=== PATIENT | female | born 1955 | race Caucasian/White ===

== ENCOUNTER 2019-12-11 02:16 | Outpatient (CLI) | payer BC, SELFPAY ==
[2019-12-11 11:13] LABS: Hemoglobin A1C 5.7 % (3.8-5.6)
[2019-12-11 14:27] LABS: ALT 27 U/L (14-59); AST 22 U/L (15-37); Albumin 3.9 g/dL (3.4-5.0); Alkaline Phosphatase 79 U/L (46-116); Anion Gap 9.5 mmol/L (3-11); BUN 16 mg/dL (7-18); Bilirubin, Total 0.5 mg/dL (0.2-1.0); CO2 27.5 mmol/L (21.0-32.0); CREATININE 0.87 mg/dL (0.55-1.02); Calcium 9.1 mg/dL (8.5-10.1); Calculated LDL 138 mg/dL (<100); Chloride 106 mmol/L (98-107); Cholesterol 215 mg/dL (<200); Glucose 92 mg/dL (74-106); HDL Cholesterol 49 mg/dL (40-60); Potassium 4.8 mmol/L (3.5-5.1); Sodium 143 mmol/L (136-145); Total Protein 7.1 g/dL (6.4-8.2); Triglyceride 140 mg/dL (<150)
== END 2019-12-11 02:36 ==
DX: Z00.00 Encounter for general adult medical examination without abnormal findings (principal); E03.9 Hypothyroidism, unspecified; I10 Essential (primary) hypertension; R63.8 Other symptoms and signs concerning food and fluid intake; R73.01 Impaired fasting glucose; Z13.220 Encounter for screening for lipoid disorders
CPT/HCPCS: 36415; 80053; 80061; 83036

== ENCOUNTER 2019-12-31 01:40 | Outpatient (CLI) | payer BC, SELFPAY ==
--- NOTE | 2019-12-31 12:00 | DI.MAMMO_ITS ---
EXAM: MAMMO SCREENING CLINICAL HISTORY: screening, Z12.39 TECHNIQUE: Mammograms were interpreted according to the usual protocol including computer analysis w [employer] CAD system, tomosynthesis and C-view imaging. COMPARISON: 2011 through 2016 FINDINGS: The breasts are composed of mainly fatty density , Breast Density category A. No suspicious masses or suspicious microcalcifications are seen. No skin thickening or abnormal axillary lymph nodes are seen. There has been no significant change from prior exams. IMPRESSION: BIRADS Category 1, negative mammogram. Yearly screening mammography is recommended. Breast density category A.
== END 2019-12-31 02:00 ==
DX: Z12.31 Encounter for screening mammogram for malignant neoplasm of breast (principal)
CPT/HCPCS: 77063; 77067

== ENCOUNTER 2020-04-17 10:23 | Outpatient (REF) | payer BC, SELFPAY ==
--- NOTE | 2020-04-17 08:40 | PAPFT_PTH ---
PATIENT: Anna Marie Burdick LOC: [facility] U#:[id number] AGE/SX: 64/F ROOM: RE04/17/[address]: Naye Matthews APRN : 1955 BED: DIS: 04/17/2020 SPEC #: [id number] RECD: 04/17/20 12:49 STATUS: MELLO RELisandro #: [id number] LINNEA: 04/17/20 08:[address]: Naye Matthews DEPT: [facility] Cytology RECD BY: Abbey Mclaughlin Tissues: 1 - CX/ENDOCX FOR PAP SMEARS Procedures: PAP THIN PREP/UVM Screening HPV DNA PROBE Comments: [id number]
== END 2020-04-17 10:43 ==
LOC: LBN 10:23
DX: Z12.4 Encounter for screening for malignant neoplasm of cervix (principal); Z11.51 Encounter for screening for human papillomavirus (HPV)
CPT/HCPCS: 88142; 87624

== ENCOUNTER 2021-01-05 01:55 | Outpatient (CLI) | payer MEDICARE, BC, SELFPAY ==
--- NOTE | 2021-01-05 06:30 | DI.MAMMO_ITS ---
EXAM: MAMMO SCREENING CLINICAL HISTORY: screening,Z12.39 TECHNIQUE: Mammograms were interpreted according to the usual protocol including computer analysis w [email or web address] CAD system, tomosynthesis and C-view imaging. COMPARISON: 2011 through 2019 FINDINGS: The breasts are composed of mainly fatty density , Breast Density category A. No suspicious masses or suspicious microcalcifications are seen. No skin thickening or abnormal axillary lymph nodes are seen. There has been no significant change from prior exams. IMPRESSION: BI-RADS Category 1, Negative mammogram Yearly screening mammography is recommended. Breast Density - Category A, fatty density. A negative radiographic report should not delay biopsy if a dominant or clinically suspicious mass is present. Up to ten percent of cancers are not identified on mammography. A negative report may reinforce clinical impression. Adenosis and dense breasts may obscure an underlying neoplasm. False positive reports average 6 to 10%. Patient will receive a letter notifying them of these results.
== END 2021-01-05 02:15 ==
DX: Z12.31 Encounter for screening mammogram for malignant neoplasm of breast (principal)
CPT/HCPCS: 77063; 77067

== ENCOUNTER → 2022-01-28 10:57 | Outpatient (BNVA) | payer MEDICARE, BC, SELFPAY | PROVIDERS: Visit Provider Physical Therapy Assistant | DX: Z12.11 Encounter for screening for malignant neoplasm of colon (principal) ==

== ENCOUNTER 2022-02-04 12:31 | Outpatient (REF) | payer MEDICARE, BC, SELFPAY ==
--- NOTE | 2022-02-04 10:00 | PAPFT_PTH ---
PATIENT: Anna Marie Burdick LOC: [facility] U#:[id number] AGE/SX: 66/F ROOM: RE02/04/[address]: Tanvi Kelsey MD : 1955 BED: DIS: 02/04/2022 SPEC #: [id number] RECD: 02/04/22 17:39 STATUS: MELLO REQ #: [id number] LINNEA: 02/04/22 10:[address]: Tanvi Kelsey DEPT: [facility] Cytology RECD BY: Abbey Mclaughlin ENTERED: 02/04/22 17:39 SP TYPE: PAPFT OTHR DR: Naye Matthews APRN Tissues: 1 - CX/ENDOCX FOR PAP SMEARS Procedures: PAP THIN PREP/UVM Screening HPV DNA PROBE Comments: [id number]
== END 2022-02-04 12:32 | disposition home or self-care (01) ==
LOC: LBN 12:31
PROVIDERS: Visit Provider Obstetrics & Gynecology
DX: Z12.4 Encounter for screening for malignant neoplasm of cervix (principal); Z11.51 Encounter for screening for human papillomavirus (HPV); R87.810 Cervical high risk human papillomavirus (HPV) DNA test positive
CPT/HCPCS: 88142; 87624

== ENCOUNTER 2022-02-05 02:15 | Outpatient (CLI) | payer MEDICARE, BC, SELFPAY ==
[2022-02-05 12:10] LABS: Source Nasal/Nares
[2022-02-05 14:27] LABS: COVID-19 PCR Negative (Negative)
== END 2022-02-05 02:16 | disposition home or self-care (01) ==
LOC: LBO 02:16
PROVIDERS: Visit Provider Surgery
DX: Z20.822 Contact with and (suspected) exposure to COVID-19 (principal); Z01.818 Encounter for other preprocedural examination
CPT/HCPCS: 87635; U0005

== ENCOUNTER 2022-02-08 07:54 | Day surgery (SDC) | payer MEDICARE, BC, SELFPAY ==
--- NOTE | 2022-02-08 06:30 | W.COLOREPORT ---
Colonoscopy Report Date of procedure: 02/08/22 Pre-op diagnosis general: Colon Cancer Screening Post-op diagnosis procedure note: other (ascending polyp, rectal polyp vs internal hemohrrhoid, internal hemorrhoids) Procedure: Colonoscopy Surgeon: Rizwana Resendiz Anesthesia Type: General:No Airway Estimated blood loss (mL): 2 Pathology: other (ascending polyp, rectal polyp) Complications: None Disposition: same day Indications: The patient is here for Colonoscopy pre-op. Her last screening was in 2006 and was unremarkable. She has no family history of colon cancer. She has not had any bowel habit changes. -Discussed colonoscopy bowel prep as well as the procedure. Discussed possible complications of the procedure to include bleeding, pain, perforation, missed small lesion/polyp, sore throat, aspiration and adverse reaction to the medications. Questions were answered to patient?s satisfaction. No guarantees were implied or given.? Prep: Miralax/Dulcolax Procedure Start Time: 09:00 Procedure End Time: 09:27 Retraction Time: 9 minutes Findings: one small sessile polyp in the ascending polyp Rectal polyp vs internal hemorrhoid Grade 1 internal hemorrhoids Procedure Description: After informed consent was obtained the patient was taken to the procedure room and placed in a left decubitous position. Monitors were applied and a time out was done. The patients name, date of , procedure, allergies to medications and metal in their body was reviewed. The patient was then sedated. Once sedated and comfortable a rectal exam was done. External exam was normal. Internal exam revealed a normal sphincter tone and no palpable masses. The scope was then introduced and retro-flexed. Grade 1 internal hemorrhoids and a polyp (vs skin tag) were identified on retro-flexion. The scope was then advanced to the cecum without difficulty. The ileocecal vlave and appendiceal orifice were identified. The prep was good. The scope was then slowly retracted over 9 minutes back into the rectum. Polyps were removed with cold forceps in the ascending colon and with a hot snare in the rectum. There was no diverticulosis noted. The scope was removed and the patient was woken up and taken back to Same day surgery in stable condition. The patient tolerated the procedure well and there were no immediate complications. Follow up: The patient should follow up in 5 years unless they develop changes in bowel habits or other new gastrointestinal complaints.
--- NOTE | 2022-02-08 06:31 | W.PM.DSUDISC ---
Discharge Plan Disposition Patient Disposition: HOME Condition: Good Discharge Details Reason For Visit: Colonoscopy Attending Provider: Rizwana Resendiz Primary Care Provider: Naye Matthews Home Meds and New Rx's Prescriptions: Continued famotidine 20 mg tablet 20 mg PO QHS Qty: 60 0RF ibuprofen 600 mg tablet 600 mg PO QID Qty: 120 1RF Discontinued bisacodyl [Dulcolax (bisacodyl)] 5 mg tablet,delayed release (DR/EC) 5 mg PO ONCE Qty: 4 0RF Rx Instructions: Take according to provider's instructions for colonoscopy prep. polyethylene glycol 3350 17 gram/dose powder 17 g PO ONCE Qty: 238 0RF Rx Instructions: To be taken as directed by prescriber's office for colonoscopy prep. Discharge Instructions Instructions: Hemorrhoids (DC), Colorectal Polyps (DC) Additional Instructions: Findings: One small polyp Internal hemorrhoids Follow up: 5 years Please call if you develop: fevers >101.5 Nausea or Vomiting Abdominal pain that is not transient Rectal bleeding that is more then a tbsp A hard abdomen and inability to pass gas DAY SURGERY UNIT POST ENDOSCOPY INSTRUCTIONS Instructions for everyone who is given Anesthesia: For your safety, please do the following for the next 24 Hours: a. Do not drive or operate dangerous equipment b. Do not drink alcohol beverages or use any recreational drugs for the first 24 hours or while taking pain medications. The medications in your body may have a reaction that can be dangerous. c. Do not make any important decisions or sign any important papers 1. Generally there are no restrictions on your activity after a day or so has gone by, but you may feel a bit fatigued for a few days. 2. After you arrive home you may have a light meal and return to a normal diet as you can tolerate it without feeling sick to your stomach. 3. After surgery, you may feel pain or discomfort. This should be only transient, but if it persists please contact your doctor. 4. If there are any questions regarding the findings of your procedure, please feel free to contact your doctor. 6. If you are unable to contact your doctor with a problem, contact the hospital at [phone]. 7. Continue all your regular medications unless directed otherwise. I understand the above instructions and have no questions. Signature of Patient or Responsible Adult Escort Date/Time Name of Responsible Adult Escort Signature of Nurse Date/Time Activity:: Activity as Tolerated Diet:: As Tolerated Discharge Orders Discharge Orders: Discharge Order (Routine); Ordered 02/08/22 Ordered By: Rizwana Resendiz
[2022-02-08 08:13] VITALS: BP 137/90; PULSE 86; RESP 18; TEMP 36.6; O2SAT 97
[2022-02-08] MEDS: Lactated Ringers 1,000 ML 80 ML IV (08:29)
--- NOTE | 2022-02-08 08:48 | W.ANESPRE ---
General Info Date of Service Date Performed: 02/08/22 Height: 5 ft 1 in Weight: 97.3 kg Body Mass Index (BMI): 40.5 Surgical Procedure: Operation Date: 02/08/22 09:05 Proposed Procedure Side Surgeon p Colonoscopy Rizwana Resendiz MD Actual Procedure Side Surgeon p Colonoscopy Rizwana Resendiz MD Meds Allergies and Home Medications Allergies Allergy/AdvReac Type Severity Reaction Status Date / Time Penicillins Allergy Intermediate Hives Verified 02/08/22 08:03 Home Medication Medication Instructions Recorded ibuprofen 600 mg tablet 600 mg PO QID #120 tab 09/03/20 bisacodyl 5 mg tablet,delayed 5 mg PO ONCE #4 tab 01/28/22 release (Dulcolax (bisacodyl)) famotidine 20 mg tablet 20 mg PO QHS #60 tab 01/28/22 polyethylene glycol 3350 17 17 g PO ONCE #238 g 01/28/22 gram/dose oral powder Current Visit Medications: Current Medications Generic Name Dose Route Start Last Admin Trade Name Freq PRN Reason Stop Dose Admin Hyoscyamine Sulfate 0.125 mg 02/08/22 06:31 Hyoscyamine 0.125 Mg Sl/Oral/Chew SL DIRECTED PRN Ringer's Solution 1,000 mls @ 80 mls/hr 02/08/22 06:00 02/08/22 08:29 IV 03/07/22 23:59 80 mls/hr INFUSION ISADORA Administration IV Miscellaneous Supplies 1 each 02/08/22 06:00 Iv Access IV 03/07/22 23:59 DIRECTED ISADORA Ondansetron HCl 4 mg 02/08/22 06:31 Ondansetron 4 Mg/2 Ml Vial IVP Q4H PRN PRN Nausea / Vomiting Sodium Chloride 0 ml 02/08/22 06:00 Normal Saline Flush 10 Ml Syr IV 03/07/22 23:59 PRN PRN Sodium Chloride 0 ml 02/08/22 06:00 Normal Saline 10 Ml Vial IJ 03/07/22 23:59 DIRECTED PRN Sterile Water 0 ml 02/08/22 06:00 Water,Injection,Sterile 10 Ml Vial IJ 03/07/22 23:59 DIRECTED PRN PFSH Active Problems Active Problems: Problem Status Onset Code Polyp of colon 09/29/06 K63.5 Medical History Medical History Bilateral hand pain Cervical cancer screening 12/2010: PAP/HPV = ASCUS/+HPV ([facility]) 02/11/2011: PAP/HPV= NEG/=HPV (Dr. Chawla) 01/31/2012: PAP/HPV= ASCUS/+HPV ([facility]) 03/02/2012: PAP/HPV= ASCUS/-HPV (Dr. Chawla) 08/2012: Previously diagnosed cervical dysplasia. COLPO (done for ASCUS PAP) ? ?normal COLPO but with ECC showing LSIL. (Dr. Chawla) 04/12/2013: NORMAL (shift in jared suggestive of BV) (Dr. Chawla) 10/16/2013: PAP/HPV = NEG/NEG ( Dr. Chawla) 04/16/2014: PAP/HPV = NEG/NEG (Dr. Chawla) 08/23/17: PAP/HPV = ASCUS/NEG ([facility]) 02/09/18: PAP/HPV = ASCUS/NEG ([facility]) 04/18/20: PAP/HPV = NEG/+ HPV (HPV Genotypes 16 & 18/45 are NEG) ([facility]) - Refer to [facility] -Colposcopy at [facility]. Biopsy and ECC negative. 02/04/22: repeat pap @[facility]: Chronic osteoarthritis GERD (gastroesophageal reflux disease) Increased body mass index (BMI) Low back pain S1 disc w/ nerve compression Numbness and tingling Screening for colon cancer Surgical History Surgical History Arthroplasty of knee left knee w/ cartilege removal;repair torn ACL 2006 Bilateral salpingectomy with oophorectomy pT. DENIES THIS section Cholecystectomy Tobacco Smoking/Tobacco Use Status: Never Passive smoking exposure: No Second hand exposure: No Alcohol Alcohol Intake: current Alcohol intake frequency: holidays/special occasions only Alcohol type: beer Substance Use Substance use: Never Substance use type: does not use Counseling provided: none Prental History History Para Hx # Term Pregnancies Multiple births Hx # Pregnancies Ectopic pregnancies AB induced Hx Number of Living Children 2 AB spontaneous Vital Signs and Lab Results Vital Signs Most Recent Vital Signs in EMR: Most Recent Vital Signs Temp Pulse Resp BP Pulse Ox 36.6 C 86 18 137/90 97 02/08/22 08:13 02/08/22 08:13 02/08/22 08:13 02/08/22 08:13 02/08/22 08:13 Lab Results Blood Type / Crossmatch: No Data to Display Complete Blood Count: No Data to Display Complete Metabolic Panel: No Data to Display Liver Function Panel: No Data to Display Coagulation Panel: No Data to Display Cardiac Panel: No Data to Display Arterial Blood Gas: No Data to Display Venous Blood Gas: No Data to Display Pancreas Panel: No Data to Display Thyroid Panel: No Data to Display Infectious Disease: Coronavirus (COVID-19)(PCR) Negative (Negative) 02/05/22 08:29 02/05/22 Coronavirus 2019 Source Nasal/Nares 02/05/22 08:29 02/05/22 Blood Cultures: No Data to Display Toxicology Panel: No Data to Display Anesthesia Assessment and Plan Anesthesia History Personal History: No History of Anesthesia Complications Family History: No Family History of Anesthesia Complications Exercise Tolerance Exercise Tolerance: Metabolic Equivalents>4 Cardiac & Pulmonary Exam Cardiac Exam: Normal S1/S2 Heart Sounds Pulmonary Exam: Clear Bilateral Breath Sounds Implantable Cardiac Device Does patient have a Pacemaker or an ICD?: No Airway Exam Known Difficult Airway: No Mallampati Class: 2 Mouth Opening: Normal (> 3cm) Thyromental Distance: Less than 3 cm Neck Range of Motion: Full ROM Neck Circumference: Normal Teeth Condition: Normal Dentition ASA Classification ASA Score: ASA 3 Emergency Case?: No NPO Status NPO Status: NPO Clears >2 hours, Solids >8 hours Anesthesia Plan Resuscitation Status: Full Code Anesthesia Technique: General Anesthesia Airway Planned: Natural Airway Pain Management: Surgeon and patient request nerve block Monitors Used: Standard Monitors Preoperative Comments:: 66 yo female for repeat colo, last was unremarkable. Sig PMHx: GERD, denies major issues.
[2022-02-08 08:49] VITALS: BMI 40.5
--- NOTE | 2022-02-08 09:11 | BOWEL_PTH ---
PATIENT: Anna Marie Burdick LOC: [facility] U#:[id number] AGE/SX: 66/F ROOM: RE02/08/[address]: Rizwana Resendiz MD : 1955 BED: DIS: 02/08/2022 SPEC #: [id number] RECD: 02/08/22 11:51 STATUS: MELLO REQ #: [id number] LINNEA: 02/08/22 09:[address]: Rizwana Resendiz DEPT: Surgical Specimen RECD BY: Abbey Mclaughlin ENTERED: 02/08/22 11:51 SP TYPE: Bowel OTHR DR: Naye Matthews APRN Tissues: 1 - BIOPSY BOWEL 2 - BIOPSY BOWEL Procedures: GROSS AND MICRO LEVEL 4 Comments: [id number]
[2022-02-08 09:40] VITALS: BP 140/93; PULSE 74; RESP 16; TEMP 36.4; O2SAT 98
[2022-02-08 10:12] VITALS: BP 139/69; PULSE 62; RESP 16; TEMP 36.2; O2SAT 99
--- NOTE | 2022-02-08 14:23 | W.ANESPOSTOP ---
Postoperative Evaluation Date, Time and Location Date Performed: 02/08/22 Time Performed: 14:23 Patient Location: Day Surgery Unit Vital Signs Most Recent Imported Vital Signs: Most Recent Vital Signs Temp Pulse Resp BP Pulse Ox 36.2 C L 62 16 139/69 99 02/08/22 10:12 02/08/22 10:12 02/08/22 10:12 02/08/22 10:12 02/08/22 10:12 Pain Score Most Recent Pain Score: Most Recent Pain Score Pain Level 0 02/08/22 10:12 Assessment Mental Status: Awake (Alert & Oriented to Patient Baseline) Airway and Respiratory Function: Patent airway with normal (patient baseline) respiratory exam Cardiovascular Function: Hemodynamically Stable Hydration Status: Adequately Hydrated Nausea & Vomiting: No Nausea or Vomiting Pain: Pt. Denies Any Pain Peripheral Nerve Block: Patient did not receive a nerve block
== END 2022-02-08 10:41 | disposition home or self-care (01) ==
LOC: SUR 07:54
PROVIDERS: Visit Provider Surgery
PROC: 0DJD8ZZ Inspection of Lower Intestinal Tract, Via Natural or Artificial Opening Endoscopic (ICD-10-PCS; CPT 45378; principal; 2022-02-08 09:00)
DX: Z12.11 Encounter for screening for malignant neoplasm of colon (principal); K62.1 Rectal polyp; K63.5 Polyp of colon; K21.9 Gastro-esophageal reflux disease without esophagitis; M54.50 Low back pain, unspecified; K64.0 First degree hemorrhoids; K63.89 Other specified diseases of intestine
CPT/HCPCS: 45380; 45385; 88305; J2001

== ENCOUNTER 2022-02-09 03:08 | Outpatient (CLI) | payer MEDICARE, BC, SELFPAY ==
[2022-02-09 10:45] LABS: ALT 28 U/L (14-59); AST 20 U/L (15-37); Albumin 3.9 g/dL (3.4-5.0); Alkaline Phosphatase 100 U/L (46-116); Anion Gap 8.2 mmol/L (3-11); BUN 18 mg/dL (7-18); Bilirubin, Total 0.5 mg/dL (0.2-1.0); CO2 25.8 mmol/L (21.0-32.0); CREATININE 1.3 mg/dL (0.55-1.02); Chloride 106 mmol/L (98-107); Estimated GFR 40.98 (mL/min/1.73m2); Glucose 98 mg/dL (74-106); Potassium 4.3 mmol/L (3.5-5.1); Sodium 140 mmol/L (136-145); Total Protein 7.2 g/dL (6.4-8.2)
== END 2022-02-09 03:09 | disposition home or self-care (01) ==
LOC: LBO 03:09
DX: Z00.00 Encounter for general adult medical examination without abnormal findings (principal); K21.9 Gastro-esophageal reflux disease without esophagitis; M54.59 Other low back pain
CPT/HCPCS: 36415; 80053

== ENCOUNTER 2022-04-29 02:35 | Outpatient (CLI) | payer MEDICARE, BC, SELFPAY ==
[2022-04-29 13:58] LABS: Anion Gap 7.4 mmol/L (3-11); BUN 25 mg/dL (7-18); CO2 26.6 mmol/L (21.0-32.0); CREATININE 1.1 mg/dL (0.55-1.02); Calcium 9.4 mg/dL (8.5-10.1); Chloride 105 mmol/L (98-107); Estimated GFR 49.69 (mL/min/1.73m2); Glucose 121 mg/dL (74-106); Potassium 4.3 mmol/L (3.5-5.1); Sodium 139 mmol/L (136-145)
[2022-04-29 15:21] LABS: Calculated LDL 141 mg/dL (<100); Cholesterol 239 mg/dL (<200); HDL Cholesterol 52 mg/dL (40-60); Triglyceride 232 mg/dL (<150)
== END 2022-04-29 02:36 | disposition home or self-care (01) ==
LOC: LOS 02:35
DX: E78.5 Hyperlipidemia, unspecified (principal); N28.9 Disorder of kidney and ureter, unspecified
CPT/HCPCS: 36415; 80048; 80061

== ENCOUNTER → 2022-07-06 01:02 | Outpatient (CLI) | payer MEDICARE, BC, SELFPAY ==
--- NOTE | 2022-07-06 13:18 | DI.MAMMO_ITS ---
Exam(s) MAMMO SCREENING EXAM: MAMMO SCREENING CLINICAL HISTORY: screening,z12.39 TECHNIQUE: Bilateral full field digital CC and MLO mammographic images were obtained with 3D tomosyn thesis and utilizing computer aided detection (CAD). COMPARISON: Available for comparison. FINDINGS: Masses/Architectural Distortion: None seen. Microcalcifications: No suspicious pleomorphic-type are seen. Skin Thickening/Nipple Retraction: None. IMPRESSION: 1. No significant interval change with no specific features of malignancy noted. 2. Unless there is more urgent need, screening mammography is recommended, as per [place] [employer] guidelines. BI-RADS Category 1 - Negative Breast Density - Category B - Scattered areas of fibroglandular density Breast density category C or D implies that the patient has dense breast tissue. Dense breast tissue is very common and is not abnormal but dense breast tissue can make it harder to find cancer on a ma mmogram. Also, dense breast tissue may increase their breast cancer risk. This information about the result of the mammogram report was provided to the patient to raise their awareness. Use this report when you speak with the patient about their risks for breast cancer, which includes their family hist ory. At that time, you may recommend for more screening tests (Ultrasound or MRI) as they might be us eful based on their risk. A negative radiographic report should not delay biopsy if a dominant or clinically suspicious mass is present. Up to ten percent of cancers are not identified on mammography. A negative report may reinforce clinical impression. Adenosis and dense breasts may obscure an underlying neoplasm. False positive reports average 6 to 10%. Patient will receive a letter notifying them of these results.
== END ==
DX: Z12.31 Encounter for screening mammogram for malignant neoplasm of breast (principal)
CPT/HCPCS: 77063; 77067

== ENCOUNTER 2023-02-23 01:43 | Outpatient (CLI) | payer MEDICARE, BC, SELFPAY ==
--- NOTE | 2023-02-23 07:43 | DI.RAD_ITS ---
Exam(s) XR KNEE LT 3V AP,LAT,OZ EXAM: XR KNEE LT 3V AP,LAT,OZ CLINICAL HISTORY: increased lt knee pain,m25.562. TECHNIQUE: 2D digital imaging was performed. Three views. COMPARISON: No exams were available for comparison FINDINGS: BONES: No acute fracture is present. No bony destructive lesion is seen. JOINTS: There is severe narrowing of the medial femoral tibial joint space with a [id number] appear ance and prominent periarticular spurring. Lateral femoral tibial joint is maintained. There is als o mild spurring at the articular aspect of the patella. No joint effusion is seen. SOFT TISSUE: Normal. IMPRESSION: Severe degenerative changes of the medial femoral tibial joint. DATA REPOSITORY: RADIATION DOSE DELIVERED:
--- NOTE | 2023-02-23 07:43 | DI.RAD_ITS ---
Exam(s) XR LUMBAR SPINE COMPLETE EXAM: XR LUMBAR SPINE COMPLETE CLINICAL HISTORY: increased low back pain, m54.5. TECHNIQUE: 2D digital imaging was performed. Five views. COMPARISON: No exams were available for comparison FINDINGS: BONES: No fracture or destructive lesion. Vertebral body heights are maintained. There are minimal e ndplate osteophytes. There are facet degenerative changes at L4-5 and L5-S1. No spondylolysis. S I joints are unremarkable. DISKS: Mild narrowing of the L4-5 and L5-S1 disc spaces. Remaining disc spaces are maintained. ALIGNMENT: There is slight spondylolisthesis at L4-5 secondary to facet degenerative changes. SOFT TISSUE: Multiple surgical clips both upper quadrants. IMPRESSION: Mild degenerative changes at L4-5 and L5-S1. DATA REPOSITORY: RADIATION DOSE DELIVERED:
== END 2023-02-23 02:03 ==
LOC: DI 01:44
PROVIDERS: PCP Nurse Practitioner Family; Visit Provider Nurse Practitioner Family
DX: M25.562 Pain in left knee
CPT/HCPCS: 73562; 72110

== ENCOUNTER 2023-02-23 02:58 | Outpatient (CLI) | payer MEDICARE, BC, SELFPAY ==
[2023-02-23 08:03] LABS: Anion Gap 6.8 mmol/L (3-11); BUN 20 mg/dL (7-18); CO2 29.2 mmol/L (21.0-32.0); CREATININE 1.3 mg/dL (0.55-1.02); Calcium 9.4 mg/dL (8.5-10.1); Chloride 105 mmol/L (98-107); Estimated GFR 45.07 (mL/min/1.73m2); Glucose 112 mg/dL (74-106); Potassium 4.3 mmol/L (3.5-5.1); Sodium 141 mmol/L (136-145)
[2023-02-23 08:25] LABS: Hemoglobin A1C 5.8 % (<5.7)
== END 2023-02-23 02:59 | disposition home or self-care (01) ==
LOC: LBO 02:59
PROVIDERS: PCP Nurse Practitioner Family; Visit Provider Nurse Practitioner Family
DX: R73.9 Hyperglycemia, unspecified (principal); R20.0 Anesthesia of skin; R20.2 Paresthesia of skin; E78.5 Hyperlipidemia, unspecified
CPT/HCPCS: 36415; 73562; 80048; 72110; 83036

== ENCOUNTER 2023-05-19 14:24 | Outpatient (REF) | payer MEDICARE, BC, SELFPAY ==
--- NOTE | 2023-05-19 11:40 | PAPFT_PTH ---
PATIENT: Anna Marie Burdick LOC: [facility] U#:[id number] AGE/SX: 67/F ROOM: RE05/19/[address]: Tanvi Kelsey MD : 1955 BED: DIS: 05/19/2023 SPEC #: [id number] RECD: 05/19/23 17:56 STATUS: MELLO REQ #: [id number] LINNEA: 05/19/23 11:[address]: Tanvi Kelsey DEPT: [facility] Cytology RECD BY: Abbey Mclaughlin ENTERED: 05/19/23 17:57 SP TYPE: PAPFT OTHR DR: Eulogio Castro DNP Tissues: 1 - CX/ENDOCX FOR PAP SMEARS Procedures: PAP THIN PREP/[facility] Screening HPV DNA PROBE Comments: [id number]
== END 2023-05-19 14:25 | disposition home or self-care (01) ==
LOC: LBN 14:24
PROVIDERS: PCP Nurse Practitioner Family; Visit Provider Obstetrics & Gynecology
DX: Z11.51 Encounter for screening for human papillomavirus (HPV) (principal)
CPT/HCPCS: 88142; 87624

== ENCOUNTER → 2023-05-23 08:02 | Outpatient (BNVA) | payer MEDICARE, BC, SELFPAY | PROVIDERS: PCP Nurse Practitioner Family; Referring Provider Nurse Practitioner Family; Visit Provider Student in an Organized Health Care Education/Training Program | DX: G56.01 Carpal tunnel syndrome, right upper limb (principal); G56.02 Carpal tunnel syndrome, left upper limb; M17.12 Unilateral primary osteoarthritis, left knee; Z98.890 Other specified postprocedural states | CPT/HCPCS: 99214 ==

== ENCOUNTER → 2023-06-08 01:52 | Outpatient (CLI) | payer MEDICARE, BC, SELFPAY ==
--- NOTE | 2023-06-08 07:30 | DI.MRI_ITS ---
Exam(s) MR LUMBAR SPINE WO EXAM: MR LUMBAR SPINE WO CLINICAL HISTORY: no improvement with PT,LOW BACK PAIN, M54.5. TECHNIQUE: Multiplanar multisequence MRI of the Lumbar spine was performed. COMPARISON: CR XR LUMBAR SPINE COMPLETE from 02/23/2023 FINDINGS: Bones: The last intervertebral disc space is designated the L5/S1 level for the numbering purpose of this examination. The vertebral body heights are well maintained. Alignment is satisfactory. The ma rrow signal characteristics are unremarkable. Cord: The conus tip ends at the T12 level. It is of normal size and signal intensity. T12-L1: No disc herniations or bulges are present. No central spinal canal or neural foraminal stenos is. L1-2: No disc herniations or bulges are present. No central spinal canal or neural foraminal stenosis . L2-3: No disc herniations or bulges are present. No central spinal canal or neural foraminal stenosis . L3-4: Small left foramina disc protrusion causing moderate neural foraminal narrowing. No central ca nal stenosis. Mild facet joint degenerative changes. L4-5: Minimal disc bulging. Facet degenerative changes. Mild ligamentous hypertrophy. Mild central canal stenosis. No significant neural foraminal narrowing. L5-S1: No disc herniations or bulges are present. Facet degenerative changes. No significant central canal stenosis or neural foraminal narrowing. The visualized SI joints and sacrum are well maintained. Nerve root sheath cysts are noted at S1 and S2. Soft tissues: The paraspinal soft tissues are unremarkable. IMPRESSION: Left foraminal disc protrusion at L3-4 causing moderate left neural foraminal narrowing. Mild central canal stenosis secondary to combination of facet degenerative changes and ligamentous hy pertrophy at L4-5. DATA REPOSITORY:
== END ==
PROVIDERS: PCP Nurse Practitioner Family; Visit Provider Nurse Practitioner Family
DX: M99.63 Osseous and subluxation stenosis of intervertebral foramina of lumbar region
CPT/HCPCS: 72148

== ENCOUNTER 2023-06-22 08:42 | Day surgery (SDC) | payer MEDICARE, BC, SELFPAY ==
--- NOTE | 2023-06-22 07:31 | W.PM.DSUDISC ---
Date of service: 06/22/23 Time of Service: 07:31 Discharge Plan Disposition Patient Disposition: Home Condition: Good Discharge Details Reason For Visit: L ECTR Attending Provider: Nabil Caro Primary Care Provider: Eulogio Eller Home Meds and New Rx's Prescriptions: New hydrocodone-acetaminophen 5-325 mg tablet 1 tab PO Q6H PRN (Reason: pain) Qty: 4 0RF acetaminophen 500 mg tablet 1,000 mg PO TID Qty: 90 0RF ibuprofen 600 mg tablet 600 mg PO TID PRN (Reason: pain) Qty: 90 0RF Continued famotidine 20 mg tablet 20 mg PO PRN Discontinued ibuprofen 600 mg tablet 800 mg PO PRN Discharge Instructions Stand Alone Forms: Vania Sherman Tunnel Release Referrals: Nabil Caro MD [ [facility] STAFF PHYSICIAN] - Activity:: Activity as Tolerated Remove Dressings/Wound Care:: 48 hours Shower/Bathe:: 48 hours Diet:: As Tolerated Discharge Orders Discharge Orders: Discharge Order (Routine); Ordered 06/22/23 Ordered By: Denton Juarez DS: Diagnosis Discharge Diagnosis (1) Left carpal tunnel syndrome: Status: Acute
[2023-06-22 09:16] VITALS: BP 143/91; PULSE 70; RESP 18; TEMP 36.6; O2SAT 98
--- NOTE | 2023-06-22 09:30 | W.ANESPRE ---
General Info Date of Service Date Performed: 06/22/23 Height: 5 ft 1 in Weight: 105.9 kg Body Mass Index (BMI): 44.1 Surgical Procedure: Operation Date: 06/22/23 09:55 Proposed Procedure Side Surgeon p Wrist ECTR Left Nabil Caro MD Actual Procedure Side Surgeon p Wrist ECTR Left Nabil Caro MD Pre-Op Diagnosis Post-Op Diagnosis L ECTR Meds Allergies and Home Medications Allergies Allergy/AdvReac Type Severity Reaction Status Date / Time Penicillins Allergy Intermediate Hives Verified 06/22/23 09:20 Home Medication Medication Instructions Recorded famotidine 20 mg tablet 20 mg PO PRN Heart Burn 05/24/23 acetaminophen 500 mg tablet 1,000 mg PO TID #90 tabs 06/22/23 hydrocodone 5 mg-acetaminophen 325 1 tab PO Q6H PRN pain #4 tabs 06/22/23 mg tablet ibuprofen 600 mg tablet 600 mg PO TID PRN pain #90 tabs 06/22/23 ibuprofen 800 mg tablet 800 mg 06/22/23 naproxen sodium 220 mg tablet 660 mg PO BID PRN 06/22/23 (Aleve) Current Visit Medications: Current Medications Generic Name Dose Route Start Last Admin Trade Name Freq PRN Reason Stop Dose Admin Acetaminophen 650 mg 06/22/23 07:29 Acetaminophen 325 Mg Tab PO 07/22/23 07:28 Q4H PRN PRN Hydrocodone Bitart/Acetaminophen 0 tab 06/22/23 07:29 Hydrocodone 5/Acetaminophen 325 Tab PO 07/22/23 07:28 Q3H PRN PRN Pain Ringer's Solution 1,000 mls @ 80 mls/hr 06/22/23 06:00 IV 06/22/23 23:59 INFUSION ISADORA Cefazolin Sodium/Dextrose 2 gm in 50 mls @ 100 mls/hr 06/22/23 06:00 Ancef Duplex IVPB 06/22/23 23:59 PREOP ISADORA IV Miscellaneous Supplies 1 each 06/22/23 06:00 Iv Access IV 06/22/23 23:59 DIRECTED ISADORA Sodium Chloride 0 ml 06/22/23 06:00 Normal Saline Flush 10 Ml Syr IV 06/22/23 23:59 PRN PRN Sodium Chloride 0 ml 06/22/23 06:00 Normal Saline 10 Ml Vial IJ 06/22/23 23:59 DIRECTED PRN Sterile Water 0 ml 06/22/23 06:00 Water,Injection,Sterile 10 Ml Vial IJ 06/22/23 23:59 DIRECTED PRN PFSH Active Problems Active Problems: Problem Status Onset Code Low back pain M54.5 Bilateral hand pain M79.641, M79.642 Numbness and tingling R20.0, R20.2 Low kidney function N28.9 Hyperlipidemia E78.5 Morbid obesity with BMI of 40.0-44.9, adult E66.01, Z68.41 Immunization counseling Z71.85 Left knee pain M25.562 Hyperglycemia R73.9 Left knee DJD M17.12 Left carpal tunnel syndrome G56.02 Right carpal tunnel syndrome G56.01 Medical History Medical History Chronic osteoarthritis COVID (~12/13/22) GERD (gastroesophageal reflux disease) History of cervical dysplasia 05/19/23: 02/04/22: normal/HPV+ pap --> [facility]: neg : Colposcopy at [facility]. Biopsy and ECC negative 04/18/20: Normal/+HPV (HPV Genotypes 16 & 18/45 are NEG)? ([facility]) 02/09/18: ASCUS/NEG HPV ([facility]) 08/23/17: ASCUS/NEG HPV([facility]) 04/16/2014: NEG/NEG (Dr. Chawla) Polyp of colon (09/29/06) fibroepithelial polyp Screening for colon cancer Surgical History Surgical History Bilateral salpingectomy with oophorectomy pT. DENIES THIS section Cholecystectomy (~01/2022) History of colonoscopy (~01/2022) History of left knee surgery left knee w/ cartilage removal; repair torn ACL 2006 Hx of bilateral salpingectomy Tobacco Smoking/Tobacco Use Status: Never Passive smoking exposure: Yes Second hand exposure: Yes Alcohol Alcohol Intake: current Alcohol intake frequency: a few times a month Alcohol type: beer Substance Use Substance use: Never Substance use type: does not use Counseling provided: none Prental History History 4 Para 2 Hx # Term Pregnancies Multiple births Hx # Pregnancies Ectopic pregnancies AB induced 2 Hx Number of Living Children 2 AB spontaneous Past Pregnancies Del. Date GA/Weeks # Preg Succ Route Wgt Sex Labor Lgth Anesthesia Location Prov Complic 09/04/79 No Female 12/11/80 No Female Delivery Date: 09/04/79 Last Updated by: Cassie Butler Iveth Delivery Date: 12/11/80 Last Updated by: Cassie Butler [place] Vital Signs and Lab Results Vital Signs Most Recent Vital Signs in EMR: Most Recent Vital Signs Temp Pulse Resp BP Pulse Ox 36.6 C 70 18 143/91 H 98 06/22/23 09:16 06/22/23 09:16 06/22/23 09:16 06/22/23 09:16 06/22/23 09:16 Lab Results Blood Type / Crossmatch: No Data to Display Complete Blood Count: No Data to Display Complete Metabolic Panel: No Data to Display Liver Function Panel: No Data to Display Coagulation Panel: No Data to Display Cardiac Panel: No Data to Display Arterial Blood Gas: No Data to Display Venous Blood Gas: No Data to Display Pancreas Panel: No Data to Display Thyroid Panel: No Data to Display Infectious Disease: No Data to Display Blood Cultures: No Data to Display Toxicology Panel: No Data to Display Anesthesia Assessment and Plan Anesthesia History Personal History: No History of Anesthesia Complications Family History: No Family History of Anesthesia Complications Exercise Tolerance Exercise Tolerance: Metabolic Equivalents>4 Pertinent Negatives Pertinent Negatives: No Symptoms of GERD, No Major Cardiovascular Symptoms or Complaints and No Major Pulmonary Symptoms or Complaints Cardiac & Pulmonary Exam Cardiac Exam: Normal S1/S2 Heart Sounds Pulmonary Exam: Clear Bilateral Breath Sounds Implantable Cardiac Device Does patient have a Pacemaker or an ICD?: No Airway Exam Known Difficult Airway: No Mallampati Class: 2 Mouth Opening: Normal (> 3cm) Thyromental Distance: Less than 3 cm Neck Range of Motion: Full ROM Neck Circumference: Normal Teeth Condition: Normal Dentition ASA Classification ASA Score: ASA 3 Emergency Case?: No NPO Status NPO Status: NPO Clears >2 hours, Solids >8 hours Anesthesia Plan Resuscitation Status: Full Code Anesthesia Technique: General Anesthesia Airway Planned: Natural Airway Monitors Used: Standard Monitors
[2023-06-22 09:34] VITALS: BMI 44.1
[2023-06-22] MEDS: Lactated Ringers 1,000 ML 80 ML IV (09:35)
[2023-06-22] MEDS: ceFAZolin 2 GM/50 ML BAG IVPB (10:10)
[2023-06-22] MEDS: Lidocaine 1% Pres-Free W/EPI 1/200,000 30 ML VIAL (10:31)
[2023-06-22 10:44] VITALS: BP 113/79; PULSE 68; RESP 16; TEMP 36.4; O2SAT 97
--- NOTE | 2023-06-22 11:02 | W.ANESPOSTOP ---
Postoperative Evaluation Date, Time and Location Date Performed: 06/22/23 Time Performed: 11:02 Patient Location: Day Surgery Unit Vital Signs Most Recent Imported Vital Signs: Most Recent Vital Signs Temp Pulse Resp BP Pulse Ox 36.4 C L 68 16 113/79 97 06/22/23 10:44 06/22/23 10:44 06/22/23 10:44 06/22/23 10:44 06/22/23 10:44 Pain Score Most Recent Pain Score: Most Recent Pain Score Pain Level 0 06/22/23 10:50 Assessment Mental Status: Awake (Alert & Oriented to Patient Baseline) Airway and Respiratory Function: Patent airway with normal (patient baseline) respiratory exam Cardiovascular Function: Hemodynamically Stable Hydration Status: Adequately Hydrated Nausea & Vomiting: No Nausea or Vomiting Pain: Pt. Denies Any Pain Peripheral Nerve Block: Patient did not receive a nerve block
[2023-06-22 11:09] VITALS: BP 133/91; PULSE 65; RESP 18; TEMP 36.3; O2SAT 98
--- NOTE | 2023-06-22 22:55 | ROE_ITS ---
Date of service: 06/22/23 Time of Service: 10:30 Operative Note Operative Note DATE OF PROCEDURE: 06/22/23 PRE-OP DIAGNOSIS: Left Carpal Tunnel Syndrome POST-OP DIAGNOSIS: same PROCEDURE: Left Endoscopic Carpal Tunnel Release SURGEON: Nabil Caro ANESTHESIA TYPE: General:No Airway Refer to Anesthesia Record ESTIMATED BLOOD LOSS: 0 PATHOLOGY: none sent TOURNIQUET TIME: 4 COMPLICATIONS: None Patient was transported to: same day Patient's condition: stable Indications: I have seen Rea in clinic for symptoms of carpal tunnel syndrome. The numbness, tingling, and pain limited function. Clinical exam findings confirmed the diagnosis of carpal tunnel syndrome. Nonoperative measures such as bracing, time, activity modifications had been tried but disability and pain persisted. I discussed carpal tunnel release with the patient. I reviewed the risks of the procedure to include, but not limited to, bleeding, infection, pain, stiffness, incomplete release, damage to nerves or vessels, persistent numbness, recurrence. Despite these risks, the patient elected to proceed. Findings: There was tightened carpal tunnel. This was dilated and released successfully with the endoscopic with increased space within the tunnel. The antebrachial fascia was released proximally freeing the median nerve at the wrist. Procedure Description: Rea was greeted in the preoperative holding area where the correct side was id entified and marked. The consent was reviewed with the patient and signed. The history and physical was updated. All questions were answered. Rea was taken back to the operating room. The patient was placed into the supine position on the operating room table with the left arm on an arm board. A nonsterile tourniquet was placed high onto the arm. All bony prominences were well padded. Prophylactic antibiotics in the form of Cefazolin were administered. The left arm was then prepped with Chloraprep and draped in a standard fashion with stockinette and extremity drape. A timeout to confirm correct identity, side and site, procedure, allergies, anesthesia, and medical concerns was performed. The surgical site was marked in the volar wrist creases in line with the radial border of the fourth ray. This area was anesthetized with approximately 6cc of 1% Lidocaine. The limb was then exsanguinated with an Esmarch. The skin was incised with a 15 blade, approximately 1cm. The skin only was cut and the deeper tissue was dissected bluntly with a tenotomy scissor, avoiding passing nerve and venous structures. The fascia was penetrated and opened bluntly. A two-prong skin hook was placed under this proximal fascial edge. A series of hamate finders were used to identify and dilate the carpal tunnel. Synovial elevator was used to free synovial attachments to the underside of the transverse carpal ligament. My thumb was kept in the palm to payton the distal extent of the carpal tunnel and correctly position the hand. The Microaire endoscope was inserted without difficulty and without resistance. Excellent visualization showed horizontally running fibers of the transverse carpal ligament (TCL). The distal extent of the TCL was visualized and the end of the scope palpated with the thumb. The blade was elevated and withdrawn from distal to proximal. The TCL was split into two flaps. The endoscope was reinserted to confirm complete release and any remnant ligament was incised. The scope was withdrawn and the proximal aspect of the carpal tunnel was grossly inspected and appeared release with the median nerve visible. The antebrachial fascia at the level of the wrist was then freed from the overlying skin and then the underlying median nerve with blunt dissection. This was transected longitudinally for about 3cm proximal to the wrist incision. The wound was then irrigated with easy flow of irrigant distally and proximally. The incision was closed with a single 4-0 Nylon suture. The wound was dressed with Xeroform, Gauze, Kerlix and Charlie. The tourniquet was deflated with the initial dressing and held with some pressure. Blood flow returned easily to all digits with capillary refill less than 2 seconds. The patient tolerated the p rocedure well and was returned to the Same Day Surgery area in a stable condition suffering no known complication.
== END 2023-06-22 11:37 | disposition home or self-care (01) ==
PROVIDERS: PCP Nurse Practitioner Family; Visit Provider Student in an Organized Health Care Education/Training Program
PROC: 01N54ZZ Release Median Nerve, Percutaneous Endoscopic Approach (ICD-10-PCS; CPT 29848; principal; 2023-06-22 09:45)
DX: G56.02 Carpal tunnel syndrome, left upper limb (principal)
CPT/HCPCS: 29848; J0690; J2405

== ENCOUNTER → 2023-06-30 08:37 | Outpatient (BNVA) | payer MEDICARE, BC, SELFPAY | PROVIDERS: PCP Nurse Practitioner Family; Referring Provider Nurse Practitioner Family; Visit Provider Student in an Organized Health Care Education/Training Program | DX: Z47.89 Encounter for other orthopedic aftercare (principal); R60.0 Localized edema; G56.01 Carpal tunnel syndrome, right upper limb ==

== ENCOUNTER → 2023-08-04 02:58 | Outpatient (CLI) | payer MEDICARE, BC, SELFPAY ==
--- NOTE | 2023-08-04 11:50 | DI.MAMMO_ITS ---
Exam(s) MAMMO SCREENING EXAM: MAMMO SCREENING CLINICAL HISTORY: screening,z12.39. TECHNIQUE: Bilateral full field digital CC and MLO mammographic images were obtained with 3D tomosyn thesis and utilizing computer aided detection (CAD). COMPARISON: Prior mammograms were reviewed. FINDINGS: There has been no significant change in the appearance and distribution of the fibroglandular tissue. Small benign-appearing nodule in the left breast is unchanged from all prior mammograms. There are no new spiculated masses nor malignant appearing microcalcification groups. There is no significant architectural distortion nor skin thickening-retraction. IMPRESSION: No radiographic evidence of malignancy. BI-RADS Category 1 - Negative Breast Density - Category B - Scattered areas of fibroglandular density Breast density Category C or D implies that the patient has dense breast tissue. Dense breast tissue can make it harder to find cancer on a mammogram. Dense breast tissue is also associated with an incr eased risk of breast cancer. This information about the result of the mammogram report was provided to the patient to raise their awareness. Use this report when you speak with the patient about their risks for breast cancer, which includes their family history. At that time, you may recommend additional screening tests (Ultrasoun d or MRI) as these tests may add significant information. A negative radiographic report should not delay biopsy if a dominant or clinically suspicious mass is present. Up to ten percent of cancers are not identified on mammography. A negative report may reinforce clinical impression. Adenosis and dense breasts may obscure an underlying neoplasm. False positive reports average 6 to 10%. Patient will receive a letter notifying them of these results.
== END ==
PROVIDERS: PCP Nurse Practitioner Family; Visit Provider Nurse Practitioner Family
DX: Z12.31 Encounter for screening mammogram for malignant neoplasm of breast (principal)
CPT/HCPCS: 77063; 77067

== ENCOUNTER 2023-08-24 09:11 | Outpatient (CLI) | payer MEDICARE, BC, SELFPAY ==
--- NOTE | 2023-08-24 06:00 | DI.RAD_ITS ---
Exam(s) XR PAIN CLINIC SACRIOILIAC 2V EXAM: XR PAIN CLINIC SACRIOILIAC 2V CLINICAL HISTORY: Dx: Sacroiliac Joint Dysfunction. TECHNIQUE: Fluoroscopy was provided for the referring physician for guidance with performing pain cl inic injection procedure. COMPARISON: No exams were available for comparison FINDINGS: Please see procedure note for details. Fluoro time: 16.6 seconds RADIATION DOSE DELIVERED: Ka,r=39.3 mGy
[2023-08-24 09:27] VITALS: BP 158/108; PULSE 74; RESP 20; TEMP 36.6; O2SAT 95
--- NOTE | 2023-08-24 10:09 | PDOC.PAIN ---
Date of service: 08/24/23 Time of Service: 10:09 Pain Managment Procedure Note Procedure Note Procedure Note: PROCEDURE NOTE BILATERAL INTRA-ARTICULAR SACROILIAC JOINT INJECTION Date of Service: August 24, 2023 Patient: Anna Marie Burdick Provider: Blake Larson DO, MPH COMMENTS: I previously evaluated the patient in the office and their symptoms in relation to the sacroiliac joint pain have remained the same. Pre-operative diagnosis: Sacroiliac joint dysfunction Post-operative diagnosis: Same Pre-procedure pain: VAS= 7/10 Anna Marie Burdick has been referred to our [facility] for a Bilateral intra-articular Sacroiliac joint injection. Anna Marie was interviewed and the medical record reviewed. There were no medical, pharmacologic, radiographic or other structural contraindications to attempting a fluoroscopically-guided, contrast-enhanced, intra-articular Sacroiliac joint injection. The risks, benefits, and potential side effects of this procedure were reviewed with the patient. Questions and concerns were addressed. After it was clear that Anna Marie was fully informed about the procedure, the printed consent form was signed by the patient and myself. Anna Marie was placed in the prone position on the fluoroscopy table and an automated blood pressure cuff, 3 lead EKG, and pulse oximeter were applied. The skin entry point for approaching the Right sacroiliac joint was identified under the most advantageous fluoroscopic view and marked. Following thorough Chlorhexadine preparation of the skin and draping with sterile surgical drapes, 2 mls of 1% lidocaine was infiltrated into the skin at the entry point and the surrounding subcutaneous tissues. Next, a 3.5 22G spinal needle was placed under fluoroscopic guidance into the Right sacroiliac joint. Intra-articular placement was confirmed by a clear arthrogram resulting from the injection of 0.25ml of Omnipaque-240. Next, 1/2 ml of Depo- Medrol 80 mg/ml was injected intra-articularly with an initial reproduction of a significant component of the usual pain. This was followed with 1 ml of 1% Lidocaine. The needle was then removed without difficulty. The exact procedure was completed on the opposite sacroiliac joint. (48 ml of Omnipaque-240 was wasted) Anna Marie's vital signs were stable throughout the procedure and were as recorded in nursing records. Follow up plans and appointments were discussed with Anna Marie. Post procedure instructions were given as documented in nursing records. Having met discharge criteria, Anna Marie was [facility] from the [facility]. COMMENTS: Post-procedure pain: VAS= 0/10. If the patient receives at least 50% improvement in pain and/or function for at least 3 months, this procedure can be repeated if needed. I personally performed this entire procedure. BLAKE LARSON DO, MPH ABPMR-subspecialty board certification in Pain Medicine [facility]
[2023-08-24] MEDS: Omnipaque 240 MG/ML 50 ML BTL IJ (10:12)
[2023-08-24] MEDS: methylPREDNISolone ACETATE 80 MG/ML VIAL IJ (10:16)
[2023-08-24 10:18] VITALS: BP 160/103; PULSE 72; RESP 14; O2SAT 98
== END 2023-08-24 09:12 | disposition home or self-care (01) ==
PROVIDERS: PCP Nurse Practitioner Family; Visit Provider Preventive Medicine Occupational Medicine
DX: M54.50 Low back pain, unspecified (principal); M46.1 Sacroiliitis, not elsewhere classified
CPT/HCPCS: 00123; 27096; 72200; J1040; Q9967

== ENCOUNTER 2023-10-12 08:38 | Outpatient (CLI) | payer MEDICARE, BC, SELFPAY ==
--- NOTE | 2023-10-12 06:00 | DI.RAD_ITS ---
Exam(s) XR PAIN CLINIC SACRIOILIAC 2V EXAM: XR PAIN CLINIC SACRIOILIAC 2V CLINICAL HISTORY: Dx: Sacroiliac Joint Dysfunction TECHNIQUE: 2D and realtime digital imaging was performed. CONTRAST MATERIAL: Refer to procedure report. COMPARISON: No exams were available for comparison FINDINGS: Fluoroscopy was provided for Dr. Larson during the performance of a bilateral SI joint injection. Ple ase refer to the procedure report for complete details. Ka,r=12.9 mGy IMPRESSION:
[2023-10-12 08:47] VITALS: BP 158/86; PULSE 79; RESP 20; TEMP 36.7; O2SAT 94
[2023-10-12 09:45] VITALS: BP 176/96; PULSE 72; RESP 14; O2SAT 96
[2023-10-12] MEDS: methylPREDNISolone ACETATE 80 MG/ML VIAL IJ (09:50)
[2023-10-12] MEDS: Omnipaque 240 MG/ML 50 ML BTL IJ (09:50)
--- NOTE | 2023-10-12 09:57 | PDOC.PAIN ---
Date of service: 10/12/23 Time of Service: 09:57 Pain Managment Procedure Note Procedure Note Procedure Note: PROCEDURE NOTE BILATERAL INTRA-ARTICULAR SACROILIAC JOINT INJECTION Date of Service: October 12, 2023 Patient: Anna Marie Burdick Provider: Blake Larson DO, MPH COMMENTS: I previously evaluated the patient in the office and their symptoms in relation to the sacroiliac joint pain have remained the same. Pre-operative diagnosis: Sacroiliac joint dysfunction Post-operative diagnosis: Same Pre-procedure pain: VAS= 7/10 Anna Marie Burdick has been referred to our [facility] for a Bilateral intra-articular Sacroiliac joint injection. Anna Marie was interviewed and the medical record reviewed. There were no medical, pharmacologic, radiographic or other structural contraindications to attempting a fluoroscopically-guided, contrast-enhanced, intra-articular Sacroiliac joint injection. The risks, benefits, and potential side effects of this procedure were reviewed with the patient. Questions and concerns were addressed. After it was clear that Anna Marie was fully informed about the procedure, the printed consent form was signed by the patient and myself. Anna Marie was placed in the prone position on the fluoroscopy table and an automated blood pressure cuff, 3 lead EKG, and pulse oximeter were applied. The skin entry point for approaching the Left sacroiliac joint was identified under the most advantageous fluoroscopic view and marked. Following thorough Chlorhexadine preparation of the skin and draping with sterile surgical drapes, 2 mls of 1% lidocaine was infiltrated into the skin at the entry point and the surrounding subcutaneous tissues. Next, a 3.5 22G spinal needle was placed under fluoroscopic guidance into the Left sacroiliac joint. Intra-articular placement was confirmed by a clear arthrogram resulting from the injection of 0.25ml of Omnipaque-240. Next, 1/2 ml of Depo- Medrol 80 mg/ml was injected intra-articularly with an initial reproduction of a significant component of the usual pain. This was followed with 1 ml of 1% Lidocaine. The needle was then removed without difficulty. (49 ml of Omnipaque-240 was wasted). The exact procedure was completed on the opposite sacroiliac joint. Anna Marie's vital signs were stable throughout the procedure and were as recorded in nursing records. Follow up plans and appointments were discussed with Anna Marie. Post procedure instructions were given as documented in nursing records. Having met discharge criteria, Anna Marie was [facility] from the [facility]. COMMENTS: Post-procedure pain: VAS= 0/10. If the patient receives at least 50% improvement in pain and/or function for at least 3 months, this procedure can be repeated if needed. I personally performed this entire procedure. BLAKE LARSON DO, MPH ABPMR-subspecialty board certification in Pain Medicine [facility]
== END 2023-10-12 08:39 | disposition home or self-care (01) ==
LOC: PC 08:38
PROVIDERS: PCP Nurse Practitioner Family; Visit Provider Preventive Medicine Occupational Medicine
DX: M54.50 Low back pain, unspecified (principal); M46.1 Sacroiliitis, not elsewhere classified
CPT/HCPCS: 00123; 27096; 72200; J1040; Q9967

== ENCOUNTER 2023-12-14 07:45 | Outpatient (CLI) | payer MEDICARE, BC, SELFPAY ==
--- NOTE | 2023-12-14 06:00 | DI.RAD_ITS ---
Exam(s) XR PAIN CLINIC LUMBAR SP 2V EXAM: XR PAIN CLINIC LUMBAR SP 2V CLINICAL HISTORY: DX: Lumbar spondylosis TECHNIQUE: 2D and realtime digital imaging was performed. CONTRAST MATERIAL: Refer to procedure report. COMPARISON: No exams were available for comparison FINDINGS: Fluoroscopy was provided for Dr. Larson during the performance of a bilateral medial branch block in t he lumbar spine. Please refer to the procedure report for complete details. Ka,r=26.1 mGy IMPRESSION:
[2023-12-14 07:50] VITALS: BP 147/79; PULSE 66; RESP 20; TEMP 36.7; O2SAT 98
--- NOTE | 2023-12-14 08:37 | PDOC.PAIN ---
Date of service: 12/14/23 Time of Service: 08:37 Pain Managment Procedure Note Procedure Note Procedure Note: PROCEDURE NOTE Bilateral Lumbar Medial Branch Blocks Date of Service: December 14, 2023 Patient: Anna Marie Burdick Provider: Blake Larson DO, MPH Anna Marie Burdick has been [facility] for lumbar medial branch blocks. Pre-operative diagnosis: Lumbar Spondylosis without Myelopathy Post-operative diagnosis: Same Pre-procedure pain: VAS= 7/10 COMMENTS: I previous evaluated her in the clinic. Her symptoms are the same as they were at that time. Anna Marie? was interviewed and the medical records were reviewed. There were no medical, pharmacologic, radiographic or other structural contraindications to attempting fluoroscopically guided local anesthetic lumbar medial branch blocks. Risks and potential side effects were discussed. I also discussed the potential benefit(s) of the procedure with Anna Marie, and voiced concerns were addressed. After Anna Marie was completely informed about the procedure, the printed consent form was signed. A standard time-out procedure was performed. Anna Marie was placed in the prone position on the fluoroscopy table. Automated blood pressure cuff and pulse oximeter were applied. The skin entry points for approaching the anatomic target points of the segmental medial branches of bilateral L3,L4,L5 were identified with fluoroscopy and marked. The skin at the target site area was thoroughly prepared with Chlorhexadine. The skin was then draped. Next, a 25 gauge 3.5 spinal needle was placed under fluoroscopic guidance down on to the target point (the articular pillar) for each respective segmental medial branch. Position was confirmed in A/P and lateral views. Aspiration revealed no blood or clear fluid. Next, 0.25ml of omnipaque 240 was injected at each level. No contrast following a vascular or neural pattern was visualized under continuous fluoroscopy. Next, 0.25 ml of preservative-free 0.5% bupivicaine was injected at each level. There was no unusual discomfort expressed by Anna Marie. The needles were withdrawn without difficulty. (49 mls of Omnipaque was wasted) Anna Marie was observed and was without hemodynamic, neurologic, or allergic reactions.? Fluoroscopic images were digitally archived. Provacative testing using the Modified Godinez's facet loading test- Left side Right Side Directly before the block VAS (0-10) = 7/10 VAS (0-10) = 7/10 Five minutes after the block VAS (0-10) = 0/10 VAS (0-10) = 0/10 Percentage relief obtained with this diagnostic block 100% 100% Any improved physical functioning directly after the blocks? Able to move with ease Follow up plans and appointments were discussed with Anna Marie. Anna Marie was instructed to keep careful note of how the usual pain was modified by these injections. Specifically, to keep a pain diary for the next 4 hours using a numeric pain scale of 0-10 and report these results. Post procedure instruction was given as documented in the nursing documentation and having met discharge criteria, the patient was [facility]. Based on the medial branches blocked today, if they patient has adequate relief and we are able to proceed to radiofrequency ablation, the treatment should result in the denervation of the bilateral L4-L5 and L5-S1 facet joints. We would expect to denervate a total of 4 facets during the radiofrequency ablation. COMMENTS: No apparent complications. Post-procedure pain: VAS= 0/10 Anna Marie will call back with 0-4 hour post-procedure pain scores. I personally performed the entire procedure. BLAKE LARSON DO, MPH ABPM&R-subspecialty board certification in Pain Medicine [facility] [facility]
[2023-12-14 08:39] VITALS: BP 163/95; PULSE 63; RESP 13; O2SAT 98
[2023-12-14] MEDS: Nerve Block Tray 1 EACH MC (08:41)
[2023-12-14] MEDS: Omnipaque 240 MG/ML 50 ML BTL IJ (08:42)
[2023-12-14] MEDS: Bupivacaine 0.5% Pres-Free 10 ML VIAL IJ (08:42)
== END 2023-12-14 07:46 | disposition home or self-care (01) ==
LOC: PC 07:45
PROVIDERS: PCP Nurse Practitioner Family; Visit Provider Preventive Medicine Occupational Medicine
DX: M54.50 Low back pain, unspecified (principal); M47.816 Spondylosis without myelopathy or radiculopathy, lumbar region
CPT/HCPCS: 123; 64493; 64494; 72100; 00123; J0665; Q9967

== ENCOUNTER 2024-01-04 14:07 | Outpatient (CLI) | payer MEDICARE, BC, SELFPAY ==
[2024-01-04 14:24] VITALS: BP 153/88; PULSE 61; RESP 20; TEMP 36.7; O2SAT 96
--- NOTE | 2024-01-04 15:19 | DI.RAD_ITS ---
Exam(s) XR PAIN CLINIC LUMBAR SP 2V EXAM: XR PAIN CLINIC LUMBAR SP 2V CLINICAL HISTORY: DX: Lumbar spondylosis. TECHNIQUE: Fluoroscopy was provided for the referring physician for guidance with performing pain cl inic injection procedure. COMPARISON: No exams were available for comparison FINDINGS: Please see procedure note for details. Fluoro time: 60.8 seconds RADIATION DOSE DELIVERED: lily Hannon=27.28 mGy
[2024-01-04 15:20] VITALS: BP 153/97; PULSE 73; RESP 18; O2SAT 99
[2024-01-04] MEDS: Nerve Block Tray 1 EACH MC (15:21)
[2024-01-04] MEDS: Omnipaque 240 MG/ML 50 ML BTL IJ (15:21)
[2024-01-04] MEDS: Bupivacaine 0.5% Pres-Free 10 ML VIAL IJ (15:22)
--- NOTE | 2024-01-15 08:19 | PDOC.PAIN_ITS ---
Date of service: 01/15/24 Time of Service: 08:20 Pain Managment Procedure Note Procedure Note Procedure Note: PROCEDURE NOTE Bilateral Lumbar Medial Branch Blocks Date of Service: January 04, 2024 Patient: Anna Marie Burdick Provider: Blake Larson DO, MPH Anna Marie Burdick has been referred to the [facility] for lumbar medial branch blocks. Pre-operative diagnosis: Lumbar Spondylosis without Myelopathy Post-operative diagnosis: Same Pre-procedure pain: VAS= 7/10 COMMENTS: She did very well with her first LMBBs. The pain has returned. Anna Marie? was interviewed and the medical records were reviewed. There were no medical, pharmacologic, radiographic or other structural contraindications to attempting fluoroscopically guided local anesthetic lumbar medial branch blocks. Risks and potential side effects were discussed. I also discussed the potential benefit(s) of the procedure with Anna Marie, and voiced concerns were addressed. After Anna Marie was completely informed about the procedure, the printed consent form was signed. A standard time-out procedure was performed. Anna Marie was placed in the prone position on the fluoroscopy table. Automated blood pressure cuff and pulse oximeter were applied. The skin entry points for approaching the anatomic target points of the segmental medial branches of bilateral L3,L4,L5 were identified with fluoroscopy and marked. The skin at the target site area was thoroughly prepared with Chlorhexadine. The skin was then draped. Next, a 25 gauge 3.5 spinal needle was placed under fluoroscopic guidance down on to the target point (the articular pillar) for each respective segmental medial branch. Position was confirmed in A/P and lateral views. Aspiration revealed no blood or clear fluid. Next, 0.25ml of omnipaque 240 was injected at each level. No contrast following a vascular or neural pattern was visualized under continuous fluoroscopy. Next, 0.25 ml of preservative-free 0.5% bupivicaine was injected at each level. There was no unusual discomfort expressed by Anna Marie. The needles were withdrawn without difficulty. (49 mls of Omnipaque was wasted) Anna Marie was observed and was without hemodynamic, neurologic, or allergic reactions.? Fluoroscopic images were digitally archived. Provacative testing using the Modified Godinez's facet loading test- Left side Right Side Directly before the block VAS (0-10) = 7/10 VAS (0-10) = 7/10 Five minutes after the block VAS (0-10) = 1/10 VAS (0-10) = 1/10 Percentage relief obtained with this diagnostic block 90% 90% Any improved physical functioning directly after the blocks? Able to move her low back and walk with minimal pain. Follow up plans and appointments were discussed with Anna Marie. Anna Marie was instructed to keep careful note of how the usual pain was modified by these injections. Specifically, to keep a pain diary for the next 4 hours using a numeric pain scale of 0-10 and report these results. Post procedure instruction was given as documented in the nursing documentation and having met discharge criteria, the patient was [facility] from the [facility]. Based on the medial branches blocked today, if they patient has adequate relief and we are able to proceed to radiofrequency ablation, the treatment should result in the denervation of the bilateral L4-L5 and L5-S1 facet joints. We would expect to denervate a total of 4 facets during the radiofrequency ablation. COMMENTS: No apparent complications. Post-procedure pain: VAS= 1/10 Anna Marie will call back with 0-4 hour post-procedure pain scores. I personally performed the entire procedure. BLAKE LARSON DO, MPH ABPM&R-subspecialty board certification in Pain Medicine [facility] [facility]
== END 2024-01-04 14:08 | disposition home or self-care (01) ==
LOC: PC 14:07
PROVIDERS: PCP Nurse Practitioner Family; Visit Provider Preventive Medicine Occupational Medicine
DX: M54.50 Low back pain, unspecified (principal); M47.816 Spondylosis without myelopathy or radiculopathy, lumbar region
CPT/HCPCS: 00123; 64493; 64494; 72100; J0665; Q9967

== ENCOUNTER 2024-01-31 04:59 | Outpatient (CLI) | payer MEDICARE, BC, SELFPAY ==
[2024-01-31 11:25] LABS: Hemoglobin A1C 5.6 % (<5.7)
[2024-01-31 11:41] LABS: Anion Gap 9.7 mmol/L (3-11); BUN 18 mg/dL (7-18); CO2 28.3 mmol/L (21.0-32.0); CREATININE 1.2 mg/dL (0.55-1.02); Calcium 10.4 mg/dL (8.5-10.1); Chloride 106 mmol/L (98-107); Estimated GFR 49.31 (mL/min/1.73m2); Glucose 95 mg/dL (74-106); Potassium 4.6 mmol/L (3.5-5.1); Sodium 144 mmol/L (136-145)
== END 2024-01-31 05:00 | disposition home or self-care (01) ==
PROVIDERS: PCP Nurse Practitioner Family; Visit Provider Nurse Practitioner Family
DX: N28.9 Disorder of kidney and ureter, unspecified (principal); R73.9 Hyperglycemia, unspecified
CPT/HCPCS: 36415; 80048; 83036

== ENCOUNTER 2024-02-23 11:15 | Outpatient (CLI) | payer MEDICARE, BC, SELFPAY ==
[2024-02-23 11:23] VITALS: BP 154/88; PULSE 57; RESP 20; TEMP 36.6; O2SAT 99
[2024-02-23] MEDS: Midazolam 2 MG/2 ML VIAL IVP (11:55)
[2024-02-23] MEDS: fentaNYL 100 MCG/2 ML VIAL IVP (11:55)
[2024-02-23] MEDS: Nerve Block Tray 1 EACH MC (12:40)
--- NOTE | 2024-02-23 12:40 | PDOC.PAIN ---
Date of service: 02/23/24 Time of Service: 12:40 Pain Managment Procedure Note Procedure Note Procedure Note: PROCEDURE NOTE BILATERAL LUMBAR RADIOFREQUENCY ABLATION Date of Service: February 23, 2024 Patient:? Anna Marie Burdick? Provider:? Blake Larson DO, MPH Anna Marie Burdick has been referred to the [facility] for Bilateral Lumbar Radiofrequency Ablation with the [employer] Systemss Machine.? Pre Operative Diagnosis: Lumbosacral Spondylosis without Myelopathy Post Operative Diagnosis: Same Pre procedure pain; VAS= 8/10 Comments: She did well with her LMBBs x 2 PROCEDURE: Radiofrequency Ablation of medial branches - bilateral L3, L4, L5 and lateral branches of bilateral S1. Anna Marie?was interviewed and the medical record was reviewed.? There were no medical, pharmacologic, radiographic or other structural contraindications to attempting fluoroscopically guided BILATERAL Lumbar RadiofrequencyAblation.?Risks and expected side effects as well as potential benefit of the procedure were reviewed with Anna Marie, and the patient's voiced concerns were addressed.? The printed consent form was signed.? Standard time-out procedure was performed. Anna Marie was brought into the fluoroscopy suite and positioned into the prone position on the fluoroscopy table and allowed to adjust to a position of comfort. A grounding pad was placed on the left abdomen. The sterile field was prepared using chlorhexidine preparation of the skin and sterile draping. Local anesthesia superficial and deep was provided by local infiltration of 2% lidocaine. A 17g 100 mm radiofrequency introducer needle was placed to the planned anatomic targets guided with intermittent fluoroscopy with a perpendicular approach to terminally place at the junction of the superior articular process and the transverse process of the bilateral L4, L5, the base of the sacral ala on the bilateral for the L5 medial branch nerve and the area between base of the sacral ala to the S1 foramen bilaterally. The stylets were removed and radiofrequency probes with a 4mm active tip were then inserted. Needle tip position of the probes was verified in the AP, oblique, and lateral views. At each site, the medial branch nerve was stimulated at 2 Hz to a maximum 1-2 volts determined to finalize safe needle and electrode placement. The patient was awake and responsive during this portion of the procedure. Each target was anesthetized with 1-2 mL of 2 % Lidocaine for anesthesia for lesioning and then each target was lesioned at 80 degrees Celsius for 2 minutes and 30 seconds. I next injected 1/4 cc of Depomedrol (4mg/cc) followed by 1 cc of 0.5% Bupivacaine. Tissue impedances were noted to be between 250 and 500 Ohms. There was no unusual discomfort expressed by Anna Marie. The needles were withdrawn without difficulty and bandages placed over the needle placement sites, the patient was observed and was without hemodynamic, neurologic, or allergic reactions. Fluoroscopic images were digitally archived. POST PROCEDURE EVALUATION: IMPRESSION: 1. Summary of procedure. Medication given is documented in the MAR. 2. Follow up plan: Anna Marie to contact [facility] as needed.?This procedure may be repeated if the patient achieves at least 50% improvement in pain/function for at least 6 months. 3. Estimated Blood Loss: <5 mls 4. Fluoroscopy time: Documented in the EMR. Follow up plans and appointments were discussed with the Anna Marie. Post procedure instruction was given as documented in nursing documentation and having met discharge criteria, Anna Marie was discharged from the [facility]. COMMENTS: No apparent complications. Post-procedure pain: VAS= 1/10. I personally completed the entire procedure. BLAKE LARSON DO, MPH ABPM&R - Subspecialty board certification in Pain Medicine [facility] [facility]
[2024-02-23] MEDS: Lactated Ringers 500 ML 80 ML IV (12:42)
[2024-02-23] MEDS: Lidocaine 2% Multi-Dose 20 ML VIAL IJ (12:43)
[2024-02-23] MEDS: Bupivacaine 0.5% Pres-Free 10 ML VIAL IJ (12:43)
--- NOTE | 2024-02-23 12:43 | DI.RAD_ITS ---
Exam(s) XR PAIN CLINIC LUMBAR SP 2V EXAM: XR PAIN CLINIC LUMBAR SP 2V CLINICAL HISTORY: DX: Lumbar spondylosis TECHNIQUE: 2D and realtime digital imaging was performed. CONTRAST MATERIAL: Refer to procedure report. COMPARISON: No exams were available for comparison FINDINGS: Fluoroscopy was provided for Dr. Larson during the performance of a bilateral radiofrequency ablation. Please refer to the procedure report for complete details. Ka,r=22.2 mGy IMPRESSION: RADIATION DOSE DELIVERED: 0.0 0.0 0
[2024-02-23] MEDS: methylPREDNISolone ACETATE 40 MG/ML VIAL IJ (12:44)
[2024-02-23 12:46] VITALS: BP 130/84; PULSE 57; RESP 10; O2SAT 96
== END 2024-02-23 11:16 | disposition home or self-care (01) ==
LOC: PC 11:15
PROVIDERS: PCP Nurse Practitioner Family; Visit Provider Preventive Medicine Occupational Medicine
DX: M54.50 Low back pain, unspecified (principal); M47.817 Spondylosis without myelopathy or radiculopathy, lumbosacral region
CPT/HCPCS: 64635; 64636; 72100; J0665; J1010; J2003; J2250; J3010

== ENCOUNTER → 2024-03-16 00:58 | Outpatient (CLI) | payer MEDICARE, BC, SELFPAY ==
--- NOTE | 2024-03-16 07:45 | DI.DEXA_ITS ---
Exam(s) XR DEXA BONE DENSITY W/WO ANGELA EXAM: XR DEXA BONE DENSITY W/WO ANGELA CLINICAL HISTORY: screening for osteoporosis IN POSTMENOPAUSAL STATUS,Z78.0 TECHNIQUE: COMPARISON: No exams were available for comparison FINDINGS: Lateral Spine Image: Unremarkable. No compression deformities identified. Left hip: Total T-Score: -0.1 Total Z-Score: 1.3 T- and Z-scores: Within normal limits. Lumbar Spine: Total T-Score: 0.2 Total Z-Score: 2.4 T- and Z-scores: Within normal limits. IMPRESSION: No evidence of osteoporosis.
== END ==
PROVIDERS: PCP Nurse Practitioner Family; Visit Provider Nurse Practitioner Family
DX: Z78.0 Asymptomatic menopausal state (principal); Z13.820 Encounter for screening for osteoporosis
CPT/HCPCS: 77080

== ENCOUNTER 2024-06-19 10:36 | Outpatient (REF) | payer MEDICARE, BC, SELFPAY ==
--- NOTE | 2024-06-19 10:20 | PAPFT_PTH ---
PATIENT: Anna Marie Burdick LOC: [facility] U#:[id number] AGE/SX: 68/F ROOM: RE06/19/[address]: Maria Luisa Schultz NP : 1955 BED: DIS: 06/19/2024 SPEC #: [id number] RECD: 06/19/24 13:15 STATUS: MELLO REQ #: [id number] LINNEA: 06/19/24 10:[address]: Antoine TAI,Maria Luisa DEPT: [facility] Cytology RECD BY: Abbey Mclaughlin ENTERED: 06/19/24 13:16 SP TYPE: PAPFT OTHR DR: Eulogio Castro DNP Tissues: 1 - CX/ENDOCX FOR PAP SMEARS Procedures: PAP THIN PREP/UVM Screening HPV DNA PROBE Comments: [id number] (HPV 16 & 18/45)
== END 2024-06-19 10:37 | disposition home or self-care (01) ==
LOC: LBN 10:36
PROVIDERS: PCP Nurse Practitioner Family; Visit Provider Nurse Practitioner Women's Health
DX: Z12.4 Encounter for screening for malignant neoplasm of cervix (principal); Z12.39 Encounter for other screening for malignant neoplasm of breast; Z87.410 Personal history of cervical dysplasia; Z12.31 Encounter for screening mammogram for malignant neoplasm of breast
CPT/HCPCS: 88142; 87624

== ENCOUNTER 2024-11-22 07:51 | Outpatient (CLI) | payer MEDICARE, BC, SELFPAY ==
[2024-11-22] VITALS (15 sets, daily range): BP systolic 99–156; BP diastolic 36–99; PULSE 53–81; RESP 9–20; TEMP 36.7; O2SAT 93–98
--- NOTE | 2024-11-22 06:00 | DI.RAD_ITS ---
Exam(s) XR PAIN CLINIC LUMBAR SP 2V EXAM: XR PAIN CLINIC LUMBAR SP 2V CLINICAL HISTORY: DX: Lumbar Spondylosis. TECHNIQUE: 2D and realtime digital imaging was performed. CONTRAST MATERIAL: None COMPARISON: No exams were available for comparison FINDINGS: Fluoroscopy was provided during pain management therapy lumbar spine radiofrequency ablation treatmen ts. See procedure report for details. IMPRESSION: Total fluoroscopy time 75 seconds RADIATION DOSE DELIVERED: Ka,r=23.9mGy
[2024-11-22] MEDS: Midazolam 2 MG/2 ML VIAL IVP (08:45)
[2024-11-22] MEDS: fentaNYL 100 MCG/2 ML VIAL IVP ×3 (08:45→09:05)
[2024-11-22] MEDS: Nerve Block Tray 1 EACH MC ×2 (09:32→09:34)
[2024-11-22] MEDS: Lidocaine 2% Multi-Dose 20 ML VIAL IJ (09:32)
[2024-11-22] MEDS: Bupivacaine 0.5% Pres-Free 10 ML VIAL IJ (09:33)
[2024-11-22] MEDS: methylPREDNISolone ACETATE 40 MG/ML VIAL IJ (09:33)
[2024-11-22] MEDS: Lactated Ringers 500 ML 80 ML IV (09:41)
--- NOTE | 2024-11-22 10:57 | PDOC.PAIN ---
Date of service: 11/22/24 Time of Service: 10:57 Pain Managment Procedure Note Procedure Note Procedure Note: PROCEDURE NOTE BILATERAL LUMBAR RADIOFREQUENCY ABLATION Date of Service: November 22, 2024 Patient:? Anna Marie Burdick? Provider:? Blake Larson DO, MPH Anna Marie Burdick has been referred to the [facility] for Bilateral Lumbar Radiofrequency Ablation with the [employer] Machine.? Pre Operative Diagnosis: Lumbosacral Spondylosis without Myelopathy ICD-10 M47.816 Post Operative Diagnosis: Same Pre procedure pain; VAS= 7/10 Comments: She has >6 months of >60% pain relief with her last RFA from January 2024. PROCEDURE: Radiofrequency Ablation of medial branches - bilateral L3, L4, L5 and lateral branches of bilateral S1. Anna Marie?was interviewed and the medical record was reviewed.? There were no medical, pharmacologic, radiographic or other structural contraindications to attempting fluoroscopically guided BILATERAL Lumbar Radiofrequency Ablation.?Risks and expected side effects as well as potential benefit of the procedure were reviewed with Anna Marie, and the patient's voiced concerns were addressed.? The printed consent form was signed.? Standard time-out procedure was performed. Anna Marie was brought into the fluoroscopy suite and positioned into the prone position on the fluoroscopy table and allowed to adjust to a position of comfort. A grounding pad was placed on the left abdomen. The sterile field was prepared using chlorhexidine preparation of the skin and sterile draping. Local anesthesia superficial and deep was provided by local infiltration of 2% lidocaine. A 17g 100 mm radiofrequency introducer needle was placed to the planned anatomic targets guided with intermittent fluoroscopy with a perpendicular approach to terminally place at the junction of the superior articular process and the transverse process of the bilateral L4, L5, the base of the sacral ala on the bilateral for the L5 medial branch nerve and the area between base of the sacral ala to the S1 foramen bilaterally. The stylets were removed and radiofrequency probes with a 4mm active tip were then inserted. Needle tip position of the probes was verified in the AP, oblique, and lateral views. At each site, the medial branch nerve was stimulated at 2 Hz to a maximum 1-2 volts determined to finalize safe needle and electrode placement. The patient was awake and responsive during this portion of the procedure. Each target was anesthetized with 1-2 mL of 2 % Lidocaine for anesthesia for lesioning and then each target was lesioned at 80 degrees Celsius for 2 minutes and 30 seconds. Tissue impedances were noted to be between 250 and 500 Ohms. Next, I did inject 1/4 cc of Depomedrol (40mg/cc) followed by 1 cc of 0.5% Bupivacaine at each sensory segmental nerve. There was no unusual discomfort expressed by Anna Marie. The needles were withdrawn without difficulty and bandages placed over the needle placement sites, the patient was observed and was without hemodynamic, neurologic, or allergic reactions. Fluoroscopic images were digitally archived. POST PROCEDURE EVALUATION: IMPRESSION: 1. Summary of procedure. Medication given is documented in the MAR. 2. Follow up plan: Anna Marie to contact [facility] as needed.?This procedure may be repeated if the patient achieves at least 50% improvement in pain/function for at least 6 months. 3. Estimated Blood Loss: <5 mls 4. Fluoroscopy time: Documented in the EMR. Follow up plans and appointments were discussed with the Anna Marie. Post procedure instruction was given as documented in nursing documentation and having met discharge criteria, Anna Marie was discharged from the [facility]. This advanced procedure uses cooled radiofrequency energy to safely target the sensory nerves responsible for sending pain signals.1 A radiofrequency generator transmits a small current of Radiofrequency energy through an insulated electrode, or probe, placed within tissue. Ionic heating, produced by the friction of charged molecules, thermally deactivates the nerves responsible for sending pain signals to the brain. Radiofrequency energy heats and cools the tissue at the site of pain. Unlike other Radiofrequency procedures, Coolief circulates water through the device while heating nervous tissue to create a larger treatment area, increasing the opportunity to help with pain. This combination targets the pain-transmitting nerves without excessive heating, leading to pain relief. Conscious sedation was used. COMMENTS: No apparent complications. Post-procedure pain: VAS= 0/10. I personally completed the entire procedure. BLAKE LARSON DO, MPH ABPM&R - Subspecialty board certification in Pain Medicine [facility] [facility]
== END 2024-11-22 07:52 | disposition home or self-care (01) ==
LOC: PC 07:51
PROVIDERS: PCP Nurse Practitioner Family; Visit Provider Preventive Medicine Occupational Medicine
DX: M54.50 Low back pain, unspecified (principal); M47.816 Spondylosis without myelopathy or radiculopathy, lumbar region
CPT/HCPCS: 64635; 64636; 72100; J0665; J1010; J2003; J2250; J3010

== ENCOUNTER 2025-01-03 01:52 | Outpatient (CLI) | payer MEDICARE, BC, SELFPAY | END 2025-01-03 02:12 | PROVIDERS: PCP Nurse Practitioner Family; Visit Provider Nurse Practitioner Women's Health | DX: Z12.31 Encounter for screening mammogram for malignant neoplasm of breast (principal); R92.323 Mammographic fibroglandular density, bilateral breasts | CPT/HCPCS: 77063; 77067 ==

== ENCOUNTER 2025-03-06 21:32 | Outpatient (REF) | payer MEDICARE, BC, SELFPAY ==
[2025-03-06 21:25] LABS: Anion Gap 7.3 mmol/L (3-11); BUN 29 mg/dL (7-18); CO2 28.7 mmol/L (21.0-32.0); CREATININE 1.1 mg/dL (0.55-1.02); Calcium 9.8 mg/dL (8.5-10.1); Chloride 103 mmol/L (98-107); Estimated GFR 54.39 (mL/min/1.73m2); Glucose 93 mg/dL (74-106); Potassium 4.8 mmol/L (3.5-5.1); Sodium 139 mmol/L (136-145)
== END 2025-03-06 21:33 | disposition home or self-care (01) ==
LOC: LBN 21:32
PROVIDERS: PCP Nurse Practitioner Family; Visit Provider Nurse Practitioner Family
DX: N28.9 Disorder of kidney and ureter, unspecified (principal)
CPT/HCPCS: 80048

== ENCOUNTER 2025-05-07 05:51 | Day surgery (SDC) | payer MEDICARE, BC, SELFPAY ==
[2025-05-07 06:10] VITALS: BP 126/71; PULSE 51; RESP 16; TEMP 36.5; O2SAT 99
--- NOTE | 2025-05-07 07:05 | W.PM.DSUDISC ---
Date of service: 05/07/25 Discharge Plan Disposition Patient Disposition: Home Condition: Good Discharge Details Reason For Visit: Right carpal tunnel syndrome Attending Provider: Nabil Caro Primary Care Provider: Eulogio Eller Home Meds and New Rx's Prescriptions: New hydrocodone-acetaminophen 5-325 mg tablet 1 tab PO Q6H PRN (Reason: severe pain) Qty: 3 0RF Rx Instructions: Take one tablet up to every 6 hours as needed for severe postoperative pain Discharge Instructions Stand Alone Forms: Vania Sherman Tunnel Release Activity:: Elevate Remove Dressings/Wound Care:: 48 hours Shower/Bathe:: 48 hours Diet:: As Tolerated Discharge Orders Discharge Orders: Discharge Order (Routine); Ordered 05/07/25 Ordered By: Rhea Carter
--- NOTE | 2025-05-07 07:14 | HPE_ITS ---
Assessment and Plan Assessment and plan (1) Right carpal tunnel syndrome: Status: Acute Assessment and plan: Rea is a 69-year-old female who has carpal tunnel syndrome about the right side. She had primary symptoms of the left side and underwent left carpal tunnel release with excellent results. She is here today for the right side. After a review of clinical history, exam findings, and due to the persistence of symptoms and their daily limitations with normal function, I offered a carpal tunnel release. I discussed the technical details of carpal tunnel release and that I perform an endoscopic release, but would make a larger, open, incision if necessary for visualization. I discussed the risks of the procedure to include, but not limited to, bleeding, infection, palmar pain, stiffness, damage to nerves, damage to vessels, damage to tendons, weakness, recurrence, and incomplete release. Given these risks, Rea desires to proceed. History of Present Illness History of Present Illness Chief Complaint: Right Hand Numbness and Tingling Narrative: Rea is a 69-year-old female who have seen previously for bilateral hand numbness and tingling, worse on the left side. She underwent a left carpal tunnel release about 2 years ago with complete resolution of symptoms and is done quite well. She was initially planning to move forward with a right carpal tunnel release but unfortunately the failing health of her prompted her to take care of him primarily. Unfortunate, he few months ago and now she desires to proceed with right carpal tunnel release. She reports worsening of numbness and tingling about the right side without any significant new symptoms nor recent illness. She has lost over 70 pounds purposefully and is trying to continue to make healthy life changes. She has done extensive nighttime bracing for the right side. Review of Systems All systems reviewed & are unremarkable except as noted in HPI and below PFSH All Active Problems Lumbosacral spondylosis without myelopathy (Acute) Right shoulder pain (Acute) Sacroiliac joint dysfunction of both sides (Acute) Low back pain (Acute) S1 disc w/ nerve compression Bilateral hand pain (Acute) Numbness and tingling (Acute) Low kidney function (Chronic) Hyperlipidemia (Chronic) Risk ca.3% 2019, 6.1% 2022 Morbid obesity with BMI of 40.0-44.9, adult (Chronic) Immunization counseling (Acute) Left knee pain (Acute) Hyperglycemia (Acute) Left knee DJD (Chronic) Right carpal tunnel syndrome (Acute) Medical History History of cervical dysplasia 05/19/23: 02/04/22: normal/HPV+ pap --> [place]: neg : Colposcopy at [facility]. Biopsy and ECC negative 04/18/20: Normal/+HPV (HPV Genotypes 16 & 18/45 are NEG)? ([facility]) 02/09/18: ASCUS/NEG HPV ([facility]) 08/23/17: ASCUS/NEG HPV([facility]) 04/16/2014: NEG/NEG (Dr. Chawla) COVID (~12/13/22) Screening for colon cancer Chronic osteoarthritis GERD (gastroesophageal reflux disease) Polyp of colon (09/29/06) fibroepithelial polyp Surgical History Hx of bilateral salpingectomy Left carpal tunnel syndrome S/P ECTR: 06/22/2023 History of left knee surgery left knee w/ cartilage removal; repair torn ACL 2006 History of colonoscopy (~01/2022) section Cholecystectomy (~01/2022) Bilateral salpingectomy with oophorectomy pT. DENIES THIS Family History Mother , age 61 Diabetes Heart disease Hyperlipidemia Father , age 88 Diabetes Heart disease Sister Diabetes Sister No problems noted. Brother Hypertension Maternal Grandfather No problems noted. Paternal Grandfather Heart disease Maternal Grandmother , age 88 Heart disease Stroke Paternal Grandmother , age 98 Heart disease Daughter No problems noted. Daughter No problems noted. Social History Smoking/Tobacco Use Status: Never Second Hand Exposure: Yes Smoking risk assessment performed?: Yes Alcohol Intake: current Alcohol Intake frequency: a few times a month Alcohol type: beer Drug use: Never Substance use type: does not use Counseling given: No Counseling provided: none Adopted: No Caregiver/Support person: No Household members: spouse Housing: house Number of Children: 2 number of grandchildren: 2 Communication Needs: None Education Level: college Do you need help understanding health information?: Rarely current occupation: retired Pets and animals: Yes Pets and animals: cat(s) Sexually active: No Do you think of yourself as: straight/heterosexual Current gender identity: female What is your relationship status?: How often do you talk on the phone with friends or family?: three or more times per week How often do you get together with friends or relatives?: once per week Do you belong to any clubs or organized social groups?: yes Panel score (0-1 are the most socially isolated patients): 3 Duration: 15-30 minutes/day Frequency: 3-4 times per week Shannen/Buddhism: None Special shannen needs: No Seatbelt use: always Drive intox or ride w/intox limousine driver: No Firearms in home: No Do you feel safe at home: Yes Do you feel safe in your relationship?: Yes Female Reproductive History Menstrual Menopause type: natural History History 4 Para 2 Hx # Term Pregnancies Multiple births Hx # Pregnancies Ectopic pregnancies AB induced 2 Hx Number of Living Children 2 AB spontaneous Past Pregnancies Del. Date GA/Weeks # Preg Succ Route Wgt Sex Labor Lgth Anesth esia Location [facility] 09/04/79 No Female 12/11/80 No Female Delivery Date: 09/04/79 Last Updated by: Cassie Butler Iveth Delivery Date: 12/11/80 Last Updated by: Cassie Butler Montserrat Meds Allergies and Home Medications Allergies Allergy/AdvReac Type Severity Reaction Status Date / Time Penicillins Allergy Intermediate Hives Verified 05/07/25 06:21 Home Medications ?Medication ?Instructions ?Recorded ?Confirmed ?Type hydrocodone 5 mg-acetaminophen 325 1 tab PO Q6H PRN se keiko pain #3 05/07/25 Rx mg tablet tabs Exam Const General: cooperative, healthy appearing, comfortable and no acute distress Resp Effort & Inspection: normal respiratory effort Auscultation: clear to auscultation bilaterally Cardio Rate: regular rate Rhythm: regular rhythm Extrem Other: No gross signs of atrophy about the right hand. Positive Durkan's compression test. Slight decrease sensation at rest in the median nerve distribution. Palpable radial pulse. Results Last Vital Signs Temp 36.5 C 05/07/25 06:10 Pulse 51 L 05/07/25 06:10 Resp 16 05/07/25 06:10 BP 126/71 05/07/25 06:10 Pulse Ox 99 05/07/25 06:10
[2025-05-07] MEDS: Cephalexin 500 MG CAP 1000 MG PO (07:41)
[2025-05-07] MEDS: Sodium Bicarbonate 50 MEQ/50 ML VIAL (07:53)
[2025-05-07] MEDS: Lidocaine 1% Multi-Dose W/EPI 1/100,000 50 ML VIAL (07:53)
[2025-05-07 08:12] VITALS: BP 125/112; PULSE 59; RESP 16; TEMP 36.3; O2SAT 98
--- NOTE | 2025-05-07 10:56 | ROE_ITS ---
Operative Note Operative Note PRE-OP DIAGNOSIS: Right Carpal Tunnel Syndrome POST-OP DIAGNOSIS: same PROCEDURE: Right Endoscopic Carpal Tunnel Release SURGEON: Nabil Caro ANESTHESIA TYPE: Local By Surgeon Refer to Anesthesia Record ESTIMATED BLOOD LOSS: 0 PATHOLOGY: none sent TOURNIQUET TIME: 7 COMPLICATIONS: None Patient was transported to: same day Patient's condition: stable Indications: I have seen Rea in clinic for symptoms of carpal tunnel syndrome. The numbness, tingling, and pain limited function. Clinical exam findings confirmed the diagnosis of carpal tunnel syndrome. Nonoperative measures such as bracing, time, activity modifications had been tried but disability and pain persisted. I discussed carpal tunnel release with the patient. I reviewed the risks of the procedure to include, but not limited to, bleeding, infection, pain, stiffness, incomplete release, damage to nerves or vessels, persistent numbness, recurrence. Despite these risks, the patient elected to proceed. Findings: There was tightened carpal tunnel. This was dilated and released successfully with the endoscopic with increased space within the tunnel. The antebrachial fascia was released proximally freeing the median nerve at the wrist. Procedure Description: Rea was greeted in the preoperative holding area where the correct side was identified and marked. The consent was reviewed with the patient and signed. The history and physical was updated. All questions were answered. She was taken back to the operating room. The patient was placed into the supine position on the operating room table with the right arm on an arm board. A nonsterile tourniquet was placed high onto the arm. All bony prominences were well padded. Prophylactic antibiotics in the form of Cephalexin were administered in the DSU. The right arm was then prepped with Chloraprep and draped in a standard fashion with stockinette and extremity drape. A timeout to confirm correct identity, side and site, procedure, allergies, anesthesia, and medical concerns was performed. The surgical site was marked in the volar wrist creases in line with the radial border of the fourth ray. This area was anesthetized with approximately 6cc of 1% Lidocaine. The limb was then exsanguinated with an Esmarch. The skin was incised with a 15 blade, approximately 1cm. The skin only was cut and the deeper tissue was dissected bluntly with a tenotomy scissor, avoiding passing nerve and venous structures. The fascia was penetrated and opened bluntly. A two-prong skin hook was placed under this proximal fascial edge. A series of hamate finders were used to identify and dilate the carpal tunnel. Synovial sonia vator was used to free synovial attachments to the underside of the transverse carpal ligament. My thumb was kept in the palm to payton the distal extent of the carpal tunnel and correctly position the hand. The Microaire endoscope was inserted without difficulty and without resistance. Excellent visualization showed horizontally running fibers of the transverse carpal ligament (TCL). The distal extent of the TCL was visualized and the end of the scope palpated with the thumb. The blade was elevated and withdrawn from distal to proximal. The TCL was split into two flaps. The endoscope was reinserted to confirm complete release and any remnant ligament was incised. The scope was withdrawn and the proximal aspect of the carpal tunnel was grossly inspected and appeared release with the median nerve visible. The antebrachial fascia at the level of the wrist was then freed from the overlying skin and then the underlying median nerve with blunt dissection. This was transected longitudinally for about 3cm proximal to the wrist incision. The wound was then irrigated with easy flow of irrigant distally and proximally. The incision was closed with a single 4-0 Nylon suture. The wound was dressed with Xeroform, Gauze, Kerlix and Charlie. The tourniquet was deflated with the initial dressing and held with some pressure. Blood flow returned easily to all digits with capillary refill less than 2 seconds. The patient tolerated the procedure well and was returned to the Same Day Surgery area in a stable condition suffering no known complication. Date of Procedure: 05/07/25
== END 2025-05-07 08:22 | disposition home or self-care (01) ==
PROVIDERS: PCP Nurse Practitioner Family; Visit Provider Student in an Organized Health Care Education/Training Program
PROC: 01N54ZZ Release Median Nerve, Percutaneous Endoscopic Approach (ICD-10-PCS; CPT 29848; principal; 2025-05-07 07:30)
DX: G56.01 Carpal tunnel syndrome, right upper limb (principal)
CPT/HCPCS: 29848; J2004

== ENCOUNTER → 2025-05-17 09:30 | Outpatient (BNVA) | payer MEDICARE, BC, SELFPAY | PROVIDERS: PCP Nurse Practitioner Family; Referring Provider Nurse Practitioner Family; Visit Provider Physician Assistant | DX: Z47.89 Encounter for other orthopedic aftercare (principal); G56.01 Carpal tunnel syndrome, right upper limb | CPT/HCPCS: 99024 ==

== ENCOUNTER 2025-06-26 14:27 | Outpatient (REF) | payer MEDICARE, BC, SELFPAY ==
--- NOTE | 2025-06-26 13:40 | PAPFT_PTH ---
PATIENT: Anna Marie Burdick LOC: [facility] U#:[id number] AGE/SX: 69/F ROOM: RE06/26/[address]: Maria Luisa Schultz NP : 1955 BED: DIS: 06/26/2025 SPEC #: [id number] RECD: 06/26/25 17:17 STATUS: MELLO RELisandro #: [id number] LINNEA: 06/26/25 13:[address]: Antoine TAI,Maria Luisa DEPT: [facility] Cytology RECD BY: Abbey Mclaughlin ENTERED: 06/26/25 17:18 SP TYPE: PAPFT OTHR DR: Eulogio Castro DNP Tissues: 1 - CX/ENDOCX FOR PAP SMEARS Procedures: PAP THIN PREP/[facility] Screening HPV DNA PROBE Comments: [id number] (HPV 16 & 18/45)
== END 2025-06-26 14:28 | disposition home or self-care (01) ==
LOC: LBN 14:27
PROVIDERS: PCP Nurse Practitioner Family; Visit Provider Nurse Practitioner Women's Health
DX: Z12.4 Encounter for screening for malignant neoplasm of cervix (principal)
CPT/HCPCS: 88142; 87624